=== PATIENT | female | born 1980 | race Caucasian/White ===

== ENCOUNTER 2018-02-25 18:36 | Outpatient (CLI) | payer MEDICAID ==
[2018-02-25 20:15] LABS: ADD MAN DIFF? NO
[2018-02-25 20:16] LABS: BASOPHILS % 0.1 % (0.0-2.0); EOSINOPHILS # 0.1 10^3/ul (0.0-0.5); EOSINOPHILS % 1.2 % (0.0-7.0); HEMATOCRIT 32.4 % (37.0-47.0); HEMOGLOBIN 10.4 g/dl (12.0-16.0); LYMPHOCYTES # 1.2 10^3/ul (0.8-2.9); LYMPHOCYTES % 16.9 % (15.0-51.0); MEAN CORPUSCULAR HEMOGLOBIN 26.7 pg (29.0-33.0); MEAN CORPUSCULAR HGB CONC 32.1 g/dl (32.0-37.0); MEAN CORPUSCULAR VOLUME 83.1 fl (82.0-101.0); MEAN PLATELET VOLUME 10.1 fl (7.4-10.4); MONOCYTE # 0.7 10^3/ul (0.3-0.9); MONOCYTES % 9.5 % (0.0-11.0); NEUTROPHIL # 5.3 10^3/ul (1.6-7.5); NEUTROPHILS % 71.9 % (39.0-77.0); PLATELET COUNT 402 10^3/UL (140-415); RED CELL DISTRIBUTION WIDTH 12.6 % (11.5-14.5)
[2018-02-25 20:16] LABS: WHITE BLOOD COUNT 7.3 10^3/ul (4.8-10.8)
[2018-02-25 20:35] LABS: ALANINE AMINOTRANSFERASE 18 IU/L (13-69); ALBUMIN 3.4 g/dl (3.3-4.9); ALBUMIN/GLOBULIN RATIO 0.97; ALKALINE PHOSPHATASE 183 IU/L (42-121); ANION GAP 13 (8-16); ASPARTATE AMINO TRANSFERASE 20 IU/L (15-46); BILIRUBIN,INDIRECT 0.5 mg/dl (0-1.1); BILIRUBIN,TOTAL 0.5 mg/dl (0.2-1.3); BLOOD UREA NITROGEN 6 mg/dl (7-20); CALCIUM 8.6 mg/dl (8.4-10.2); CARBON DIOXIDE 23 mmol/L (21-31); CHLORIDE 106 mmol/L (97-110); CREATININE 0.48 mg/dl (0.44-1.00); GLUCOSE 89 mg/dl (70-220); POTASSIUM 3.9 mmol/L (3.5-5.1); SODIUM 138 mmol/L (135-144); TOTAL PROTEIN 6.9 g/dl (6.1-8.1)
[2018-02-25 20:46] LABS: ADD UMIC YES; UR ASCORBIC ACID NEGATIVE (NEGATIVE); UR BACTERIA FEW /HPF (NONE SEEN); UR BILIRUBIN (Dip) NEGATIVE (NEGATIVE); UR BLOOD (Dip) NEGATIVE (NEGATIVE); UR CLARITY CLEAR (CLEAR); UR COLOR YELLOW (YELLOW); UR GLUCOSE (Dip) NEGATIVE (NEGATIVE); UR KETONES (Dip) NEGATIVE (NEGATIVE); UR LEUKOCYTE ESTERASE (Dip) TRACE Leu/ul (NEGATIVE); UR NITRITE (Dip) NEGATIVE (NEGATIVE); UR RBC 0 /HPF (0-5); UR SPECIFIC GRAVITY (Dip) 1.015 (1.003-1.030); UR TOTAL PROTEIN (Dip) NEGATIVE (NEGATIVE); UR UROBILINOGEN (Dip) 2+ mg/dL (NEGATIVE); UR WBC 5 /HPF (0-5)
[2018-02-25] MEDS: LACTATED RINGER'S 1,000 ML IV ×2 (22:53→23:52)
== END 2018-02-26 04:35 | disposition home or self-care (01) ==
LOC: OBT 18:36 → L-D 18:37
DX: O41.03X0 Oligohydramnios, third trimester, not applicable or unspecified (principal); O09.523 Supervision of elderly multigravida, third trimester; Z3A.36 36 weeks gestation of pregnancy
CPT/HCPCS: 36415; 76815; 76818; 80053; 81001; 85025; 87086; 96360; 96361

== ENCOUNTER 2018-03-01 20:05 | Outpatient (CLI) | payer MEDICAID | END 2018-03-01 21:43 | disposition home or self-care (01) | LOC: OBT 20:05 → L-D 20:06 → OBT 21:43 | DX: O41.03X0 Oligohydramnios, third trimester, not applicable or unspecified (principal); O09.523 Supervision of elderly multigravida, third trimester; Z3A.36 36 weeks gestation of pregnancy | CPT/HCPCS: 76815 ==

== ENCOUNTER 2018-03-20 14:14 | Inpatient (IN) | payer MEDICAID ==
[2018-03-20] MEDS ORDERED: CARBOPROST 250 MCG INJ IM (17:30)
[2018-03-20] MEDS ORDERED: IBUPROFEN 600 MG TAB PO (17:30)
[2018-03-20] MEDS ORDERED: MISOPROSTOL 200 MCG TAB PR (17:30)
[2018-03-20] MEDS ORDERED: METHYLERGONOVINE 0.2 MG INJ IM (17:30)
[2018-03-20] MEDS ORDERED: OXYTOCIN 30 UNITS/LR 500 ML IV ×2 (17:30→20:30)
[2018-03-20 18:22] LABS: ADD MAN DIFF? NO
[2018-03-20 18:24] LABS: BASOPHILS % 0.3 % (0.0-2.0); EOSINOPHILS # 0.1 10^3/ul (0.0-0.5); EOSINOPHILS % 1.8 % (0.0-7.0); HEMATOCRIT 30.7 % (37.0-47.0); HEMOGLOBIN 9.9 g/dl (12.0-16.0); LYMPHOCYTES # 1.8 10^3/ul (0.8-2.9); LYMPHOCYTES % 27.7 % (15.0-51.0); MEAN CORPUSCULAR HEMOGLOBIN 25.9 pg (29.0-33.0); MEAN CORPUSCULAR HGB CONC 32.2 g/dl (32.0-37.0); MEAN CORPUSCULAR VOLUME 80.4 fl (82.0-101.0); MEAN PLATELET VOLUME 10.7 fl (7.4-10.4); MONOCYTE # 0.6 10^3/ul (0.3-0.9); MONOCYTES % 8.6 % (0.0-11.0); NEUTROPHILS % 60.8 % (39.0-77.0); PLATELET COUNT 364 10^3/UL (140-415); RED BLOOD COUNT 3.82 10^6/ul (4.20-5.40); RED CELL DISTRIBUTION WIDTH 13.5 % (11.5-14.5)
[2018-03-20 18:24] LABS: WHITE BLOOD COUNT 6.5 10^3/ul (4.8-10.8)
[2018-03-20] MEDS: LACTATED RINGER'S 1,000 ML IV* (18:42)
[2018-03-20 18:49] LABS: INR 0.93; PROTIME 12.5 Sec (11.9-14.9)
[2018-03-20 18:50] LABS: PARTIAL THROMBOPLASTIN TIME 29.7 Sec (25.0-35.0)
[2018-03-20 20:58] LABS: HEPATITIS B SURFACE ANTIGEN NEGATIVE (NEGATIVE)
[2018-03-21] MEDS: LACTATED RINGER'S 1,000 ML IV* (02:17)
[2018-03-21] MEDS: BUTORPHANOL 2 MG INJ IV (04:11)
[2018-03-21] MEDS: OXYTOCIN 30 UNITS/LR 500 ML IV ×3 (04:45→14:16)
[2018-03-21] MEDS: LIDOCAINE 1% (MPF) 30 ML INJ INJ (06:33)
[2018-03-21] MEDS ORDERED: ACETAMINOPHEN 325 MG TAB PO (09:00)
[2018-03-21] MEDS ORDERED: OXYCODONE/ASPIRIN (4.88/325) TAB PO ×2 (09:00)
[2018-03-21] MEDS ORDERED: DIBUCAINE 1% 30 GM OINT PR (09:00)
[2018-03-21] MEDS: SENNA/DOCUSATE NA (8.6MG/50MG) TAB PO (09:00)
[2018-03-21] MEDS ORDERED: HYDROCODONE/APAP (5/325) TAB PO ×2 (09:00)
[2018-03-21] MEDS ORDERED: ONDANSETRON 4 MG INJ IV (09:00)
[2018-03-21] MEDS: WITCH HAZEL/GLYCERIN PAD PR (11:43)
[2018-03-21] MEDS: BENZOCAINE 20% 56 ML SPRAY TOP (11:43)
[2018-03-21] MEDS: LANOLIN 7 GM TUBE TOP (11:43)
[2018-03-21] MEDS: IBUPROFEN 600 MG TAB PO ×2 (11:44→17:29)
[2018-03-21 15:07] LABS: RAPID PLASMA REAGIN NONREACTIVE (NR)
[2018-03-22] MEDS: SENNA/DOCUSATE NA (8.6MG/50MG) TAB PO ×3 (00:31→21:02)
[2018-03-22] MEDS: IBUPROFEN 600 MG TAB PO ×5 (00:32→23:31)
[2018-03-22 09:11] LABS: ADD MAN DIFF? NO
[2018-03-22 09:22] LABS: BASOPHILS % 0.3 % (0.0-2.0); EOSINOPHILS # 0.1 10^3/ul (0.0-0.5); EOSINOPHILS % 1.4 % (0.0-7.0); HEMATOCRIT 26.6 % (37.0-47.0); HEMOGLOBIN 8.5 g/dl (12.0-16.0); LYMPHOCYTES # 2.5 10^3/ul (0.8-2.9); LYMPHOCYTES % 25.3 % (15.0-51.0); MEAN CORPUSCULAR HEMOGLOBIN 25.9 pg (29.0-33.0); MEAN CORPUSCULAR VOLUME 81.1 fl (82.0-101.0); MEAN PLATELET VOLUME 10.6 fl (7.4-10.4); MONOCYTE # 0.7 10^3/ul (0.3-0.9); MONOCYTES % 7.1 % (0.0-11.0); NEUTROPHIL # 6.6 10^3/ul (1.6-7.5); NEUTROPHILS % 65.3 % (39.0-77.0); PLATELET COUNT 338 10^3/UL (140-415); RED BLOOD COUNT 3.28 10^6/ul (4.20-5.40); RED CELL DISTRIBUTION WIDTH 13.7 % (11.5-14.5)
[2018-03-22] MEDS: MEASLES,MUMPS,RUBELLA VACCINE INJ SC* (18:51)
[2018-03-23] MEDS: IBUPROFEN 600 MG TAB PO ×2 (05:38→12:11)
[2018-03-23] MEDS: SENNA/DOCUSATE NA (8.6MG/50MG) TAB PO (09:23)
== END 2018-03-23 12:30 | disposition home or self-care (01) | DRG 775 ==
LOC: OBT 14:14 → L-D 03-21 03:47 → PP1 03-21 08:49 → OBT 17:05 → L-D 17:05
PROVIDERS: Obstetrics & Gynecology
PROC: 10E0XZZ Delivery of Products of Conception, External Approach (ICD-10-PCS; principal; 2018-03-21)
PROC: 0HQ9XZZ Repair Perineum Skin, External Approach (ICD-10-PCS; 2018-03-21)
DX: O70.0 First degree perineal laceration during delivery (principal); Z3A.39 39 weeks gestation of pregnancy; Z37.0 Single live birth
CPT/HCPCS: 76815; 76818; 85025; 85610; 85730; 86592; 86900; 86901; 87340; 99464